=== PATIENT | female | born 2000 | race Caucasian/White ===

== ENCOUNTER 2022-03-05 09:14 | Emergency (ER) | payer MEDICAID ==
[2022-03-05 11:05] LABS: BLOOD UREA NITROGEN,BUN 12 mg/dL (7.0-18.0); CARBON DIOXIDE,CO2 24.7 mmol/L (21.0-32.0); CHLORIDE,CL 103 mmol/L (98-107); ESTIMATED GFR 108 mL/min (>60); GLUCOSE RANDOM 85 mg/dL (74-106); LIPASE 54 U/L (73-393); POTASSIUM,K 4.1 mmol/L (3.5-5.1); SODIUM,NA 138 mmol/L (136-145)
== END 2022-03-05 12:41 | disposition home or self-care (01) ==
LOC: MW.ED 09:14
DX: O99.611 Diseases of the digestive system complicating pregnancy, first trimester (principal); R10.9 Unspecified abdominal pain; Z3A.01 Less than 8 weeks gestation of pregnancy
CPT/HCPCS: 36415; 76801; 76801-26; 80053; 81001; 83690; 84702; 85025; 99284-25

== ENCOUNTER 2022-04-23 08:21 | Emergency (ER) | payer MEDICAID ==
[2022-04-23] MEDS ORDERED: Ondansetron 4 MG/2 ML SDV IVPUSH ONE (08:38)
[2022-04-23] MEDS ORDERED: Sodium Chloride 0.9% 1,000 ML IV ONE (08:38)
[2022-04-23] MEDS ORDERED: cefTRIAXone 1 GM in Sodium Chloride 0.9% 50 ML IV ONE (09:31)
[2022-04-23 09:35] LABS: CARBON DIOXIDE,CO2 20.3 mmol/L (21.0-32.0); POTASSIUM,K 3.3 mmol/L (3.5-5.1)
== END 2022-04-23 10:04 | disposition home or self-care (01) ==
LOC: MW.ED 08:21
DX: O23.11 Infections of bladder in pregnancy, first trimester (principal); N30.00 Acute cystitis without hematuria; Z3A.13 13 weeks gestation of pregnancy; Z20.822 Contact with and (suspected) exposure to COVID-19; Z91.048 Other nonmedicinal substance allergy status
CPT/HCPCS: 36415; 76801; 80053; 81001; 83605; 83690; 84702; 85025; 87040; 87635; 96361; 96374; 96375; 99284; J0696; J2405; J7030; 99283; U0002

== ENCOUNTER 2022-10-21 19:45 | Inpatient (IN) | payer BC ==
[2022-10-21] MEDS ORDERED: Acetaminophen 500 MG Tab PO ONE (21:57)
[2022-10-21] MEDS ORDERED: Oxytocin/0.9 % Sodium Chloride 30 UNIT/500 ML BAG IV SCH (23:45)
[2022-10-21] MEDS ORDERED: Lidocaine 1% 50 ML MDV INJECT PRN (23:52)
[2022-10-21] MEDS ORDERED: Methylergonovine 0.2 MG/1 ML Amp IM PRN (23:52)
[2022-10-21] MEDS ORDERED: Sodium Chloride 0.9% 10 ML Syringe FLUSH PRN (23:52)
[2022-10-21] MEDS ORDERED: Sodium Chloride 0.9% 20 ML SDV IV PRN (23:52)
[2022-10-21] MEDS ORDERED: Carboprost Tromethamine 250 MCG/1 ML Amp IM PRN (23:52)
[2022-10-21] MEDS ORDERED: Water For Irrigation,Sterile 1,000 ML Container IRR PRN (23:52)
[2022-10-21] MEDS ORDERED: Sodium Chloride 0.9% 2.5 ML Syringe FLUSH PRN (23:52)
[2022-10-21] MEDS ORDERED: Misoprostol 200 MCG Tab PO PRN (23:52)
[2022-10-21] MEDS ORDERED: Tranexamic Acid 1,000 MG in Sodium Chloride 0.9% 100 ML IV PRN (23:52)
[2022-10-22] MEDS: Lactated Ringers 1,000 ML IV SCH ×5 (00:24→20:31)
[2022-10-22] MEDS ORDERED: Promethazine 25 MG Tab PO PRN (00:31)
[2022-10-22] MEDS: Butorphanol 1 MG/ML SDV IVPUSH PRN ×3 (00:42→10:52)
[2022-10-22] MEDS ORDERED: Misoprostol 25 MCG (1/4 of 100 MCG) Tab VAG ONE (09:23)
[2022-10-22] MEDS ORDERED: Misoprostol 25 MCG (1/4 of 100 MCG) Tab PO ONE (09:23)
[2022-10-22] MEDS ORDERED: Oxytocin/0.9 % Sodium Chloride 30 UNIT/500 ML BAG IV SCH (09:30)
[2022-10-22] MEDS: Calcium Carbonate 500 MG Tab.Chew PO PRN ×2 (09:43→20:27)
[2022-10-22] MEDS ORDERED: Ropivacaine/PF 400 MG/200 ML PCA ONE (12:06)
[2022-10-22] MEDS ORDERED: Dexmedetomidine 200 MCG/2 ML SDV ONE (12:18)
[2022-10-22] MEDS ORDERED: Phenylephrine HCl In 0.9% NaCl 1 MG/10 ML Vial IVPUSH PRN (12:23)
[2022-10-22] MEDS ORDERED: ePHEDrine 50 MG/ML SDV IVPUSH PRN (12:23)
[2022-10-22] MEDS ORDERED: Ropivacaine HCl/PF 400 MG in Premix Bag 1 BAG EPIDUR SCH (12:30)
[2022-10-22] MEDS ORDERED: Ondansetron 4 MG/2 ML SDV IVPUSH PRN (21:08)
[2022-10-23] MEDS ORDERED: Witch Hazel Medicated Pads 40/Jar TOP PRN (00:14)
[2022-10-23] MEDS ORDERED: Acetaminophen 500 MG Tab PO PRN ×2 (00:14)
[2022-10-23] MEDS ORDERED: Ibuprofen 400 MG Tab PO PRN (00:14)
[2022-10-23] MEDS ORDERED: Docusate Sodium 100 MG Cap PO PRN (00:14)
[2022-10-23] MEDS ORDERED: Bisacodyl 10 MG Supp RECTAL PRN (00:14)
[2022-10-23] MEDS ORDERED: Benzocaine/Menthol 20%-0.5% Spray 78 GM Cannister TOP PRN (00:14)
[2022-10-23] MEDS ORDERED: Lanolin 100% Cream 7 GM Tube TOP PRN (00:14)
[2022-10-23] MEDS: Ibuprofen 800 MG Tab PO PRN ×2 (01:24→15:02)
== END 2022-10-24 10:56 | disposition home or self-care (01) | DRG 560 ==
LOC: MW.OBCHECK 19:45 → MW.OB 19:46 → MW.OBCHECK 23:58 → MW.OB 23:58 → OBSVTOIN 10-22 11:59 → MW.OB 10-23 04:39
PROVIDERS: ADMIT Obstetrics & Gynecology Obstetrics; ATTEND Obstetrics & Gynecology Obstetrics
PROC: 10E0XZZ Delivery of Products of Conception, External Approach (ICD-10-PCS; principal; 2022-10-22)
PROC: 3E0P7VZ Introduction of Hormone into Female Reproductive, Via Natural or Artificial Opening (ICD-10-PCS; 2022-10-22)
PROC: 3E0R3BZ Introduction of Anesthetic Agent into Spinal Canal, Percutaneous Approach (ICD-10-PCS; 2022-10-22)
PROC: 00HU33Z Insertion of Infusion Device into Spinal Canal, Percutaneous Approach (ICD-10-PCS; 2022-10-22)
DX: O99.344 Other mental disorders complicating childbirth (principal); Z37.0 Single live birth; F41.9 Anxiety disorder, unspecified; F32.A Depression, unspecified; O99.214 Obesity complicating childbirth; O99.62 Diseases of the digestive system complicating childbirth; J45.909 Unspecified asthma, uncomplicated; O77.0 Labor and delivery complicated by meconium in amniotic fluid; Z3A.39 39 weeks gestation of pregnancy; Z20.822 Contact with and (suspected) exposure to COVID-19; Z91.09 Other allergy status, other than to drugs and biological substances; Z79.899 Other long term (current) drug therapy
CPT/HCPCS: 36415; 59025; 59409; 85014; 85018; 85027; 86592; 86850; 86900; 86901; A9270-GY; J0595; J2405; J2590; J2795; J3490; J7120; U0002